=== PATIENT | female | born 2000 | race Two or more races ===

== ENCOUNTER → 2024-07-09 | Day surgery (SDC) | payer OTHER ==
[~2024-07-09] VITALS: Ht 165.1 cm; Wt 75.3 kg
[~2024-07-09] MED LIST: POVIDONE-IODINE 118 ML BOTT TOP ONE; RINGERS SOLUTION,LACTATED 1,000 ML IV SCH
[2024-07-09 15:10] LABS: HEMATOCRIT 41.1 % (36.0-45.00); MEAN CELL VOLUME 86.4 fL (80.00-100.00); MEAN CORPUSCULAR HEMOGLOBIN 29.4 pg (27.00-32.0); PLATELET COUNT 286 K/uL (150-450); RED BLOOD COUNT 4.76 M/uL (4.00-6.00); RED CELL DISTRIBUTION WIDTH 13.1 % (11.5-14.5)
[2024-07-09 15:24] LABS: CALCIUM 9.3 mg/dL (8.5-10.1); CREATININE SERUM 0.54 mg/dL (0.55-1.02); GFR 142.51; POTASSIUM 4.22 mEq/L (3.5-5.1)
[2024-07-09 15:27] LABS: PH,URINE 5.5 (5.0-8.0); URINE APPEARANCE Clear; URINE BILIRRUBIN Negative (NEGATIVE); URINE BLOOD Large; URINE COLOR Yellow; URINE GLUCOSE Negative (NEGATIVE); URINE KETONE Negative (NEGATIVE); URINE LEUKOCYTE Small; URINE NITRATE Negative; URINE PROTEIN Negative (NEGATIVE); URINE UROBILINOGEN 0.2 E.U./dl
[2024-07-09 15:28] LABS: URINE BACTERIA 352.7 uL (0.0-1933); URINE EPITHELIAL CELLS 35.8 uL (0.0-38.8); URINE RBC 1146.2 uL (0.0-20.8); URINE WBC 89.4 uL (0.0-23.2)
[2024-07-09 15:55] LABS: INR 1.17; PARTIAL THROMBOPLASTIN TIME 35.5 SECONDS (22.0-34.0); PROTHROMBIN TIME 12.6 SECONDS (9.0-11.5)
== END | disposition home or self-care (01) ==
LOC: EDSTATUS 12:14 → ER 12:14 → CIR.AMB 18:04 → SEC-K 18:04 → ER 18:04 → SEC-K 18:45 → O/R 18:45
PROVIDERS: ATTEND General Practice
DX: O02.1 Missed abortion (principal); Z3A.08 8 weeks gestation of pregnancy; Z91.013 Allergy to seafood; J32.9 Chronic sinusitis, unspecified

== ENCOUNTER 2025-01-18 22:26 | Emergency (ER) | payer OTHER ==
[~2025-01-18] VITALS: Ht 165.1 cm; Wt 78.0 kg
[2025-01-18] MEDS ORDERED: PRENATAL + DHA1 EAC1 (22:39)
[2025-01-18] MEDS ORDERED: 0.9 % SODIUM CHLORIDE 1,000 ML IV STA (22:59)
[2025-01-18] MEDS ORDERED: CEFTRIAXONE SODIUM 1,000 MG VIAL IV ONE (23:15)
[2025-01-18 23:50] LABS: HEMATOCRIT 38.7 % (36.0-45.00); HEMOGLOBIN 12.7 g/dL (12.0-15.00); MEAN CELL VOLUME 88.1 fL (80.00-100.00); MEAN CORPUSCULAR HEMOGLOBIN 28.8 pg (27.00-32.0); MEAN CORPUSCULAR HGB CONC 32.7 g/dl (32.0-36.0); PLATELET COUNT 166 K/uL (150-450); RED CELL DISTRIBUTION WIDTH 14.4 % (11.5-14.5)
[2025-01-19 00:07] LABS: CALCIUM 8.7 mg/dL (8.5-10.1); CREATININE SERUM 0.48 mg/dL (0.55-1.02); GFR 161.72; POTASSIUM 3.56 mEq/L (3.5-5.1)
[2025-01-19] MEDS ORDERED: ONDANSETRON HCL 2 MG/ML VIAL IV STA (00:29)
[2025-01-19 03:55] LABS: PH,URINE 5.5 (5.0-8.0); URINE APPEARANCE Clear; URINE BILIRRUBIN Negative (NEGATIVE); URINE BLOOD Negative; URINE COLOR Yellow; URINE GLUCOSE Negative (NEGATIVE); URINE LEUKOCYTE Negative; URINE NITRATE Negative; URINE PROTEIN Trace (NEGATIVE); URINE UROBILINOGEN 0.2 E.U./dl
[2025-01-19 03:58] LABS: URINE EPITHELIAL CELLS 34.9 uL (0.0-38.8); URINE WBC 6.4 uL (0.0-23.2)
[2025-01-19 04:00] LABS: URINE CAST 0.29 uL (0.0-1.40); URINE KETONE >=160 (NEGATIVE)
== END 2025-01-19 05:19 | disposition home or self-care (01) ==
LOC: ER 22:28
PROVIDERS: Emergency Medicine
DX: O26.892 Other specified pregnancy related conditions, second trimester (principal); J03.90 Acute tonsillitis, unspecified; Z3A.21 21 weeks gestation of pregnancy; Z91.013 Allergy to seafood

== ENCOUNTER → 2025-03-15 | Emergency (ER) | payer OTHER ==
[~2025-03-15] VITALS: Ht 165.1 cm; Wt 78.4 kg
[~2025-03-15] MED LIST changes: +FOLIC ACID0.8 M1; -POVIDONE-IODINE 118 ML BOTT TOP ONE; +PRENATAL + DHA1 EAC1; -RINGERS SOLUTION,LACTATED 1,000 ML IV SCH; +TERCONAZOLE45 GM VAG; +VITAMIN C100 MG
== END | disposition home or self-care (01) ==
LOC: ER 17:38
DX: O26.893 Other specified pregnancy related conditions, third trimester (principal); N89.8 Other specified noninflammatory disorders of vagina; Z3A.32 32 weeks gestation of pregnancy; Z91.013 Allergy to seafood

== ENCOUNTER 2025-04-29 17:16 | Inpatient (IN) | payer OTHER ==
[~2025-04-29] VITALS: Ht 165.1 cm; Wt 82.1 kg
[2025-04-29 17:26] VITALS: BP 128/75
[2025-04-29] MEDS ORDERED: RINGERS SOLUTION,LACTATED 1,000 ML IV SCH (18:00)
[2025-04-29] MEDS ORDERED: VITAMIN B6100 MG/2.5 PO (18:09)
[2025-04-29 18:34] LABS: PH,URINE 6.5 (5.0-8.0); URINE APPEARANCE Clear; URINE BILIRRUBIN Negative (NEGATIVE); URINE BLOOD Negative; URINE COLOR Yellow; URINE GLUCOSE Negative (NEGATIVE); URINE KETONE Negative (NEGATIVE); URINE LEUKOCYTE Negative; URINE NITRATE Negative; URINE PROTEIN Negative (NEGATIVE); URINE UROBILINOGEN 0.2 E.U./dl
[2025-04-29 18:35] LABS: BASO % 0.2 % (0.1-1.2); EOS # 0.21 (0.04-0.54); EOS % 1.6 % (0.7-7.0); HEMATOCRIT 33.1 % (34.1-44.9); HEMOGLOBIN 10.8 g/dL (11.2-15.7); LYMPH # 2.13 (1.18-3.74); LYMPH % 16.6 % (19.3-53.1); MEAN CORPUSCULAR HEMOGLOBIN 26.7 pg (25.6-32.2); MONO # 1.06 (0.24-0.82); MONO % 8.2 % (4.7-12.5); NEUT # 9.24 (1.56-6.13); NEUT % 71.9 % (34.0-71.1); PLATELET COUNT 209 K/uL (163-369); RED BLOOD COUNT 4.05 M/uL (3.93-5.22); RED CELL DISTRIBUTION WIDTH 15.2 % (11.6-14.4)
[2025-04-29 18:37] LABS: URINE EPITHELIAL CELLS 2.6 uL (0.0-38.8)
[2025-04-29 18:39] LABS: URINE BACTERIA 3.6 uL (0.0-1933); URINE WBC 0.7 uL (0.0-23.2)
[2025-04-29 18:53] LABS: INR 1.05; PARTIAL THROMBOPLASTIN TIME 28.5 SECONDS (22.0-34.0); PROTHROMBIN TIME 11.4 SECONDS (9.0-11.5)
[2025-04-29 18:59] LABS: ALBUMIN 2.6 gm/dL (3.4-5.0); BILIRUBIN TOTAL 0.35 mg/dL (0.3-1.2); CALCIUM 8.8 mg/dL (8.5-10.1); CREATININE SERUM 0.52 mg/dL (0.55-1.02); GFR 147.46; GLOBULINA 3.6 G/DL (2.4-3.5); POTASSIUM 4.84 mEq/L (3.5-5.1); TOTAL PROTEIN 6.2 gm/dL (6.4-8.2)
[2025-04-29 23:05] VITALS: BP 107/50
[2025-04-30] VITALS (10 sets, daily range): BP systolic 92–118; BP diastolic 41–75
[2025-04-30] MEDS ORDERED: OXYTOCIN 20 UNITS/500ML RL PIGGYBAG IV ONE (07:23)
[2025-04-30] MEDS ORDERED: OXYTOCIN 500 ML IV SCH (07:30)
[2025-04-30] MEDS ORDERED: MORPHINE SULFATE 4 MG/ML VIAL IV ONE (11:30)
[2025-04-30] MEDS ORDERED: ERYTHROMYCIN BASE OPHT 1GM EACH TUBE OP ONE ×2 (14:54→17:00)
[2025-04-30] MEDS ORDERED: OXYTOCIN 20 UNITS/1000ML RL PIGGYBAG IV ONE (14:54)
[2025-04-30] MEDS ORDERED: CHLORHEXIDINE GLUCONATE 120 ML BOTTLE TOP ONE (14:54)
[2025-04-30] MEDS ORDERED: LIDOCAINE HCL 1% 10ML VIAL ONE (14:55)
[2025-04-30] MEDS ORDERED: OXYTOCIN 1,000 ML IV SCH (16:30)
[2025-04-30] MEDS ORDERED: IBUprofen 400 MG TABLET PO PRN (16:30)
[2025-04-30] MEDS ORDERED: CHLORHEXIDINE GLUCONATE 120 ML BOTTLE TOP SCH (16:30)
[2025-04-30] MEDS ORDERED: LIDOCAINE HCL 1% 10ML VIAL PERCUT ONE (17:00)
[2025-05-01 01:00] VITALS: BP 80/52
[2025-05-01 08:58] VITALS: BP 100/60
[2025-05-01 13:59] VITALS: BP 111/70
[2025-05-01 16:43] VITALS: BP 100/67
[2025-05-02 00:09] VITALS: BP 98/60
[2025-05-02 08:00] VITALS: BP 106/69
== END 2025-05-02 15:13 | disposition home or self-care (01) | DRG 807 ==
LOC: LDR 17:16 → OB/GYN 17:16
PROVIDERS: ADMIT Obstetrics & Gynecology; ATTEND Obstetrics & Gynecology
PROC: 4A1HXCZ Monitoring of Products of Conception, Cardiac Rate, External Approach (ICD-10-PCS; 2025-04-29)
PROC: 10E0XZZ Delivery of Products of Conception, External Approach (ICD-10-PCS; principal; 2025-04-30)
PROC: 0W8NXZZ Division of Female Perineum, External Approach (ICD-10-PCS; 2025-04-30)
PROC: 3E033VJ Introduction of Other Hormone into Peripheral Vein, Percutaneous Approach (ICD-10-PCS; 2025-04-30)
DX: O36.8130 Decreased fetal movements, third trimester, not applicable or unspecified (principal); Z37.0 Single live birth; Z3A.38 38 weeks gestation of pregnancy